=== PATIENT | male | born 1940 | race Caucasian/White ===

== ENCOUNTER 2025-03-03 22:35 | Inpatient (IN) | payer MEDICARE ==
[~2025-03-03] VITALS: Ht 170.2 cm; Wt 72.6 kg
[2025-03-03 23:02] LABS: PLATELET COUNT (AUTO) 166 K/uL (152-348); RED BLOOD CELL COUNT(AUTO) 6.03 MIL/uL (4.06-5.63); RED CELL DISTRIBUTION WIDTH 15.1 % (12.1-16.2); WHITE BLOOD COUNT (AUTO) 5.3 K/uL (3.6-10.2)
[2025-03-03 23:12] LABS: CREATININE 1.5 mg/dL (0.6-1.3); SODIUM SERUM 140 mmol/L (136-145); UREA NITROGEN, BLOOD 39 mg/dL (7-18)
[2025-03-03 23:18] LABS: ASPARTATE AMINOTRANSFERASE 24 U/L (15-37); TOTAL PROTEIN, SERUM 6.1 g/dL (6.4-8.2)
[2025-03-03 23:36] LABS: LACTIC ACID 2.6 mmol/L (0.4-2.0)
[2025-03-03 23:41] LABS: *BILIRUBIN,URIN NEGATIVE (NEGATIVE); *BLOOD, URINE NEGATIVE (NEGATIVE); *CLARITY,URINE CLEAR (CLEAR); *COLOR,URINE YELLOW (YELLOW); *KETONES,URINE TRACE (NEGATIVE); *PROTEIN,URINE 1+ (NEGATIVE); *UROBILINOGEN,URINE 0.2 E.U./dl (NORMAL); LEUKOCYTE ESTERASE ,URINE NEGATIVE (NEGATIVE); NITRITE, URINE NEGATIVE (NEGATIVE); UGLUCOSE NEGATIVE (NEGATIVE)
[2025-03-04 00:02] LABS: SQUAMOUS EPITHELIAL CELL,UR FEW /HPF (NONE SEEN)
[2025-03-04] MEDS ORDERED: GABA-532 PO (00:05)
[2025-03-04] MEDS ORDERED: PRED2.5T PO (00:05)
[2025-03-04] MEDS ORDERED: MIRT-94 PO (00:05)
[2025-03-04] MEDS ORDERED: DUTA0.5C37 PO (00:05)
[2025-03-04] MEDS ORDERED: OMEP40CA21 PO (00:05)
[2025-03-04] MEDS ORDERED: NETA2.5D3 EACHEYE (00:05)
[2025-03-04] MEDS ORDERED: OXYC-133 PO (00:05)
[2025-03-04] MEDS ORDERED: TRIA0.252 PO (00:05)
[2025-03-04] MEDS ORDERED: DILT30TA2 PO (00:05)
[2025-03-04] MEDS ORDERED: ATOR40TA PO (00:05)
[2025-03-04] MEDS ORDERED: MULT-1119 PO (00:05)
[2025-03-04] MEDS ORDERED: DOCU100C36 PO (00:05)
[2025-03-04] MEDS ORDERED: TAMS-3 PO (00:05)
[2025-03-04] MEDS ORDERED: ASPI81TA31 PO (00:05)
[2025-03-04] MEDS ORDERED: BRIM5DRO2 EACHEYE (00:05)
[2025-03-04 00:18] LABS: BAND % (MANUAL) 1 % (0-10); EOSINOPHILS % (MANUAL) 3 % (0-8); LYMPHOCYTES % (MANUAL) 12 % (20-40); MONOCYTES % (MANUAL) 3 % (2-10); NEUTROPHILS % (MANUAL) 81 % (42-75)
[2025-03-04] MEDS ORDERED: PIPERACILLIN/TAZOBACTAM/D5W 50 ML IV ONE (00:44)
[2025-03-04] MEDS: PIPERACILLIN SODIUM/TAZOBACTAM 3.375 G in IV DEXTROSE 5% 50 ML IV ONE (00:46)
[2025-03-04] MEDS: IV NS 1000 ML 1,000 ML IV ONE ×2 (00:46)
[2025-03-04 01:02] LABS: ABG BASE EXCESS -2.7 mmol/L (-2.0-3.0); ABG HCO3 18.5 mmol/L (21.0-28.0); ABG PCO2 25.8 mmHg (35.0-48.0); ABG PH 7.474 (7.350-7.450); ABG PO2 41.9 mmHg (83.0-108.0); ABG SITE RIGHT RADIAL; ABG TOTAL HEMOGLOBIN 19.4 G/dL (13.5-17.5); AaDO2 81.9 mmHg; FIO2 21.0 %
[2025-03-04] MEDS ORDERED: INSU100V28 SUBCUT (01:28)
[2025-03-04] MEDS ORDERED: INSU100V7 SQ (01:28)
[2025-03-04 01:37] LABS: ABG BASE EXCESS -3.6 mmol/L (-2.0-3.0); ABG HCO3 19.8 mmol/L (21.0-28.0); ABG PCO2 32.3 mmHg (35.0-48.0); ABG PH 7.406 (7.350-7.450); ABG PO2 85.7 mmHg (83.0-108.0); ABG SITE RIGHT RADIAL; ABG TOTAL HEMOGLOBIN 17.5 G/dL (13.5-17.5); AaDO2 96.6 mmHg; FIO2 100.0 %; SET RATE, BG 16.0
[2025-03-04] MEDS ORDERED: CEFEPIME HCL 2 GM VIAL ONE (01:58)
[2025-03-04] MEDS: CEFEPIME HCL 2 GM in IV DEXTROSE 5% 100 ML IV SCH (02:07)
[2025-03-04] MEDS ORDERED: DEXTROSE 50% 50 ML DISP.SYRIN IV PRN (03:45)
[2025-03-04] MEDS ORDERED: HYDROCODONE/APAP 5-325MG TABLET PO PRN (03:45)
[2025-03-04] MEDS: OXYCODONE/APAP 5-325 MG TABLET PO PRN (03:58)
[2025-03-04 04:17] VITALS: BP 147/75; O2SAT 86
[2025-03-04 06:08] LABS: PLATELET COUNT (AUTO) 170 K/uL (152-348); RED BLOOD CELL COUNT(AUTO) 6.13 MIL/uL (4.06-5.63); RED CELL DISTRIBUTION WIDTH 15.2 % (12.1-16.2); WHITE BLOOD COUNT (AUTO) 6.0 K/uL (3.6-10.2)
[2025-03-04] MEDS: IV D5/ 0.9% NACL 1,000 ML IV PRN (06:08)
[2025-03-04] MEDS ORDERED: INSULIN REGULAR, HUMAN 1000 UNIT/10 ML VIAL ONE (06:11)
[2025-03-04] MEDS ORDERED: PHENYLEPHRINE 10 MG/1 ML VIAL ONE (06:12)
[2025-03-04 06:17] LABS: CREATININE 2.1 mg/dL (0.6-1.3); SODIUM SERUM 142 mmol/L (136-145); UREA NITROGEN, BLOOD 44 mg/dL (7-18)
[2025-03-04] MEDS: INSULIN REGULAR, HUMAN 1000 UNIT/10 ML VIAL SQ PRN (06:19)
[2025-03-04] MEDS: BLOOD SUGAR DIAGNOSTIC 1 EACH STRIP VI SCH (06:19)
[2025-03-04] MEDS ORDERED: VANCOMYCIN HCL 1,500 MG in IV DEXTROSE 5% 500 ML IV ONE (06:30)
[2025-03-04 06:39] VITALS: BP 55/44
[2025-03-04] MEDS: PHENYLEPHRINE IV 50 MG in IV NORMAL SALINE 245 ML IV PRN (06:39)
[2025-03-04 07:25] LABS: EOSINOPHILS % (MANUAL) 7 % (0-8); LYMPHOCYTES % (MANUAL) 17 % (20-40); MONOCYTES % (MANUAL) 5 % (2-10); NEUTROPHILS % (MANUAL) 71 % (42-75)
[2025-03-04 07:26] LABS: PLATELET ESTIMATE ADEQUATE
[2025-03-04] MEDS ORDERED: VANCOMYCIN IV 1,250 MG in IV DEXTROSE 5% 250 ML IV ONE (07:30)
[2025-03-04] MEDS ORDERED: BRIMONIDINE 0.2% OPHT DROP 10 ML BOTTLE EACHEYE SCH (09:00)
[2025-03-04] MEDS ORDERED: DUTASTERIDE 0.5 MG CAPSULE PO SCH (09:00)
[2025-03-04] MEDS ORDERED: TAMSULOSIN HCL 0.4 MG CAP.SR.24H PO SCH (09:00)
[2025-03-04] MEDS ORDERED: PANTOPRAZOLE SODIUM 40 MG TABLET.DR PO SCH (09:00)
[2025-03-04] MEDS ORDERED: MULTIVITAMINS,THERAPEUTIC TABLET PO SCH (09:00)
[2025-03-04] MEDS ORDERED: LATANOPROST OPHT DROP 2.5 ML BOTTLE EACHEYE SCH (09:00)
[2025-03-04] MEDS ORDERED: GABAPENTIN 100 MG CAPSULE PO SCH (09:00)
[2025-03-04] MEDS ORDERED: DOCUSATE SODIUM 100 MG CAPSULE PO SCH (09:00)
[2025-03-04] MEDS ORDERED: INSULIN GLARGINE,HUM 300 UNITS/3 ML CARTRIDGE SQ SCH (21:00)
[2025-03-04] MEDS ORDERED: ATORVASTATIN 40 MG TABLET PO SCH (21:00)
[2025-03-04] MEDS ORDERED: MIRTAZAPINE 15 MG TABLET PO SCH (21:00)
[2025-03-04] MEDS ORDERED: ASPIRIN 81 MG TAB.CHEW PO SCH (21:00)
[2025-03-05] MEDS ORDERED: CEFEPIME HCL 2 GM in IV DEXTROSE 5% 100 ML IV SCH (02:00)
== END 2025-03-04 07:30 | DRG 871 ==
LOC: ER 22:35 → CCU 03-04 01:20
PROVIDERS: ADMIT Registered Nurse Psychiatric/Mental Health; ATTEND Registered Nurse Psychiatric/Mental Health
PROC: 5A09357 Assistance with Respiratory Ventilation, Less than 24 Consecutive Hours, Continuous Positive Airway Pressure (ICD-10-PCS; principal; 2025-03-04)
DX: A41.9 Sepsis, unspecified organism (principal); J15.9 Unspecified bacterial pneumonia; J96.01 Acute respiratory failure with hypoxia; N17.0 Acute kidney failure with tubular necrosis; J44.0 Chronic obstructive pulmonary disease with (acute) lower respiratory infection; E44.1 Mild protein-calorie malnutrition; E87.20 Acidosis, unspecified; R65.20 Severe sepsis without septic shock; M15.9 Polyosteoarthritis, unspecified; G89.29 Other chronic pain; E88.09 Other disorders of plasma-protein metabolism, not elsewhere classified; Z66 Do not resuscitate; Z96.642 Presence of left artificial hip joint; Z87.891 Personal history of nicotine dependence; Z87.01 Personal history of pneumonia (recurrent); N40.0 Benign prostatic hyperplasia without lower urinary tract symptoms; K21.9 Gastro-esophageal reflux disease without esophagitis; E78.5 Hyperlipidemia, unspecified; D75.1 Secondary polycythemia; E11.65 Type 2 diabetes mellitus with hyperglycemia; I11.9 Hypertensive heart disease without heart failure
CPT/HCPCS: 36415; 36600; 70030-TC; 71045; 82803; 83605; 83735; 84100; 84484; 85730; 86850; 86900; 86901; 87040; 87086; 99082-TC; A4606; A4663; G0378; J0692; J1815; J2543; J3374; J7040; J7042; J7050; J7060; J7512